=== PATIENT | male | born 1960 | race American Indian/Alaskan Native ===

== ENCOUNTER 2016-09-27 15:25 | Outpatient (CLI) | payer BC ==
--- NOTE | 2016-09-28 09:46 | Magnetic Resonance Report ---
MR LOWER EXTREMITY JOINT RIGHT WITHOUT CONTRAST HISTORY: Chronic instability of right knee, right knee pain. TECHNIQUE: Multisequence, multiplanar MRI with and without fat suppression. COMPARISON: None. FINDINGS: There is a subtle area of indistinct subchondral bone marrow edema along the medial aspect of the lateral femoral condyle. There is no associated fracture line to suggest an unstable osteochondral defect. There does appear to be a focal cartilage defect with significant thinning overlying this area. The remaining bone marrow signal is normal. There is mild cartilage thinning throughout the remainder of the right knee consistent with mild osteoarthritic changes. The body and posterior horn of the medial meniscus are markedly abnormal with increased signal and probable fragmentation. This appears to represent a complex horizontal cleavage tear. The lateral meniscus is intact. Minimal myxoid degeneration is noted in the body of the lateral meniscus but no discrete tear. The ACL, PCL, MCL, LCL complex and extensor complex are intact and unremarkable. No ligamentous injury is detected. There is a small joint effusion. There is also unorganized fluid in the posterior medial soft tissues suggesting a ruptured popliteal cyst is present. IMPRESSION: Complex tear in the body and posterior horn of the medial meniscus. Focal cartilage defect is suspected in the nonweightbearing surface of the lateral femoral condyle with mild underlying subchondral bone marrow edema. No unstable osteochondral defect. Mild osteoarthritic changes. Small joint effusion and suspected ruptured popliteal cyst.
== END 2016-09-27 15:26 | disposition home or self-care (01) ==
LOC: MRI 15:25
PROVIDERS: ATTEND Internal Medicine Geriatric Medicine
DX: S83.231A Complex tear of medial meniscus, current injury, right knee, initial encounter (principal); M17.11 Unilateral primary osteoarthritis, right knee; X58.XXXA Exposure to other specified factors, initial encounter; Y93.89 Activity, other specified; Y92.89 Other specified places as the place of occurrence of the external cause; Y99.8 Other external cause status
CPT/HCPCS: 73721